=== PATIENT | male | born 1950 | race Caucasian/White ===

== ENCOUNTER 2021-04-11 07:42 | Day surgery (SDC) | payer MEDICARE, MEDICAID ==
[2021-04-11] VITALS (10 sets, daily range): BP systolic 113–149; BP diastolic 60–88
[~2021-04-11] VITALS: Ht 182.9 cm; Wt 97.3 kg
[~2021-04-11 07:42] MED LIST: DEXL60CA3 PO; LIDOcaine 1% (10mg/ml)w/preservative injection 20ml MDV ONE; METH-603 PO; NORCO10T PO; fentaNYL/PF 50MCG/1 ML 2ML syringe ONE; heparin 1,000unit/ml 10ml vial 10 ML ONE; iohexol 350 MG/ML 50ML vial IV ONE; iohexol 350MG/ML 100ml bottle IV ONE; midazolam 1 mg/ML 2ml injection ONE
[2021-04-11] MEDS ORDERED: diphenhydrAMINE 25mg capsule PO PRN (08:05)
[2021-04-11] MEDS ORDERED: normal saline 1,000 ML IV SCH (08:05)
[2021-04-11] MEDS ORDERED: NITR0.4T51 SL (08:09)
[2021-04-11] MEDS ORDERED: LOSA25TA96 PO (08:09)
[2021-04-11] MEDS ORDERED: ROSU20TA2 PO (08:09)
[2021-04-11] MEDS ORDERED: ASPI-1265 PO (08:09)
[2021-04-11] MEDS ORDERED: FLO0.4C PO (08:09)
[2021-04-11] MEDS ORDERED: midazolam 1 mg/ML 2ml injection ONE ×2 (08:28→08:31)
[2021-04-11] MEDS ORDERED: proCHLORperazine 10 MG/2 ml inj ONE (08:30)
[2021-04-11 08:31] LABS: BASOPHILS % (AUTO) 0.8 % (0-1); EOSINOPHILS # (AUTO) 0.1 X10'3 (0-0.9); LYMPHOCYTES # (AUTO) 1.5 X10'3 (1.1-4.8); MEAN PLATELET VOLUME 8.7 FL (7.4-10.4); NEUTROPHILS # (AUTO) 3.3 X10'3 (1.8-7.7)
[2021-04-11 08:33] LABS: EOSINOPHILS % (AUTO) 2.5 % (0-6); HEMATOCRIT 47.4 % (42.0-52.0); HEMOGLOBIN 16.3 g/dl (14.0-17.9); LYMPHOCYTES % (AUTO) 25.8 % (21-51); MEAN CORPUSCULAR HEMOGLOBIN 29.7 PG (27.0-31.0); MEAN CORPUSCULAR HGB CONC 34.4 g/dL (33.0-36.5); MEAN CORPUSCULAR VOLUME 86.2 FL (78-98); MONOCYTES # (AUTO) 0.7 X10'3 (0-0.9); MONOCYTES % (AUTO) 11.8 % (2-12); NEUTROPHILS % (AUTO) 59.1 % (42-75); PLATELET COUNT 188 X10'3 (140-440); RED CELL DISTRIBUTION WIDTH 14.1 % (11.5-14.5); WHITE BLOOD COUNT 5.7 X10'3 (4.5-11.0)
[2021-04-11 08:35] LABS: ALBUMIN 4.1 G/DL (3.4-5.0); BLOOD UREA NITROGEN 15 MG/DL (7-18); BUN/CREATININE RATIO 14.9 (5.4-32.0); CALCIUM 8.4 MG/DL (8.5-10.1); CHLORIDE 106 MMOL/L (99-107); CREATININE 1.01 MG/DL (0.60-1.10); GLUCOSE 96 MG/DL (70-104); TOTAL CARBON DIOXIDE 28.4 MMOL/L (24-32); eGFR 73 ML/MIN
[2021-04-11 08:43] LABS: ANION GAP 8 (8-16); SODIUM 142 MMOL/L (135-145)
[2021-04-11] MEDS ORDERED: iohexol 350MG/ML 100ml bottle IV ONE (08:53)
[2021-04-11] MEDS ORDERED: clopidogrel 300mg tablet ONE (09:21)
[2021-04-11] MEDS ORDERED: acetaminophen 325mg tablet PO PRN (10:05)
[2021-04-11] MEDS ORDERED: HYDROcodone/acetaminophen 5mg/325mg tablet PO PRN (10:05)
[2021-04-11] MEDS ORDERED: ondansetron/PF 4mg/2ml inj IV PRN (10:05)
[2021-04-11] MEDS ORDERED: proCHLORperazine 10 MG/2 ml inj IV PRN (10:05)
[2021-04-11] MEDS ORDERED: HYDROcodone/acetaminophen 10/325mg tab PO PRN (10:05)
== END 2021-04-11 16:15 | disposition home or self-care (01) ==
LOC: SSTAY O 07:42
PROVIDERS: ATTEND Internal Medicine Cardiovascular Disease
DX: R94.39 Abnormal result of other cardiovascular function study (principal); R07.89 Other chest pain; I25.10 Atherosclerotic heart disease of native coronary artery without angina pectoris; I10 Essential (primary) hypertension; E78.5 Hyperlipidemia, unspecified; Z87.891 Personal history of nicotine dependence; Z79.82 Long term (current) use of aspirin; Z79.899 Other long term (current) drug therapy
CPT/HCPCS: 36415; 80048; 83735; 85025; 85610; 93005; 93458; 93571; 99152; 99153; C1725; C1751; C1760; C1769; C1874; C1894; C9600; C9601; J0780; J1644; J2001; J2250; J3010; Q9967; A4620; A6258

== ENCOUNTER 2021-10-27 07:57 | Day surgery (SDC) | payer MEDICARE, MEDICAID ==
[2021-10-27] VITALS (10 sets, daily range): BP systolic 124–146; BP diastolic 69–89
[~2021-10-27] VITALS: Ht 185.4 cm; Wt 96.9 kg
[~2021-10-27 07:57] MED LIST changes: +ASPI-1265 PO; -DEXL60CA3 PO; +FLO0.4C PO; -LIDOcaine 1% (10mg/ml)w/preservative injection 20ml MDV ONE; +LOSA25TA96 PO; -METH-603 PO; +NITR0.4T51 SL; -NORCO10T PO; +ROSU20TA2 PO; -fentaNYL/PF 50MCG/1 ML 2ML syringe ONE; -heparin 1,000unit/ml 10ml vial 10 ML ONE; -iohexol 350 MG/ML 50ML vial IV ONE; -iohexol 350MG/ML 100ml bottle IV ONE; -midazolam 1 mg/ML 2ml injection ONE
[2021-10-27] MEDS ORDERED: diphenhydrAMINE 25mg capsule PO PRN (08:15)
[2021-10-27] MEDS ORDERED: normal saline 1,000 ML IV SCH (08:15)
[2021-10-27] MEDS ORDERED: ALFU10TA10 PO (08:18)
[2021-10-27] MEDS ORDERED: CLOP75TA34 PO (08:19)
[2021-10-27] MEDS ORDERED: LIDOcaine 1% (10mg/ml)w/preservative injection 20ml MDV ONE (08:49)
[2021-10-27] MEDS ORDERED: midazolam 1 mg/ML 2ml injection ONE ×2 (08:49→09:44)
[2021-10-27] MEDS ORDERED: iohexol 350MG/ML 100ml bottle IV ONE (08:49)
[2021-10-27] MEDS ORDERED: iohexol 350 MG/ML 50ML vial IV ONE (08:49)
[2021-10-27] MEDS ORDERED: fentaNYL/PF 50MCG/1 ML 2ML syringe ONE (08:49)
[2021-10-27 08:57] LABS: BASOPHILS # (AUTO) 0.1 X10'3 (0-0.2); BASOPHILS % (AUTO) 0.9 % (0-1); EOSINOPHILS # (AUTO) 0.2 X10'3 (0-0.9); EOSINOPHILS % (AUTO) 2.5 % (0-6); HEMATOCRIT 43.3 % (42.0-52.0); HEMOGLOBIN 14.7 g/dl (14.0-17.9); LYMPHOCYTES # (AUTO) 1.7 X10'3 (1.1-4.8); LYMPHOCYTES % (AUTO) 26.1 % (21-51); MEAN CORPUSCULAR HEMOGLOBIN 28.5 PG (27.0-31.0); MEAN PLATELET VOLUME 8.2 FL (7.4-10.4); MONOCYTES # (AUTO) 0.7 X10'3 (0-0.9); MONOCYTES % (AUTO) 11.1 % (2-12); NEUTROPHILS # (AUTO) 3.8 X10'3 (1.8-7.7); NEUTROPHILS % (AUTO) 59.4 % (42-75); PLATELET COUNT 194 X10'3 (140-440); RED BLOOD COUNT 5.16 X10'6 (4.70-6.10); RED CELL DISTRIBUTION WIDTH 13.8 % (11.5-14.5); WHITE BLOOD COUNT 6.4 X10'3 (4.5-11.0)
[2021-10-27 09:05] LABS: ALBUMIN 3.6 G/DL (3.4-5.0); ANION GAP 9 (8-16); BLOOD UREA NITROGEN 19 MG/DL (7-18); BUN/CREATININE RATIO 20.7 (5.4-32.0); CALCIUM 8.5 MG/DL (8.5-10.1); CHLORIDE 107 MMOL/L (99-107); CREATININE 0.92 MG/DL (0.60-1.10); GLUCOSE 93 MG/DL (70-104); POTASSIUM 3.9 MMOL/L (3.5-5.1); SODIUM 141 MMOL/L (135-145); TOTAL CARBON DIOXIDE 25.1 MMOL/L (24-32); eGFR 81 ML/MIN
[2021-10-27] MEDS ORDERED: heparin 1,000unit/ml 10ml vial 10 ML ONE (09:11)
[2021-10-27] MEDS ORDERED: verapamil 2.5 mg/ml inj IV ONE (09:17)
[2021-10-27] MEDS ORDERED: nitroGLYCERIN-Tridil 50MG/D5W 250 ML IV ONE (09:17)
[2021-10-27] MEDS ORDERED: ondansetron/PF 4mg/2ml inj IV PRN (10:30)
[2021-10-27] MEDS ORDERED: HYDROcodone/acetaminophen 10/325mg tab PO PRN (10:35)
[2021-10-27] MEDS ORDERED: acetaminophen 325mg tablet PO PRN (10:35)
[2021-10-27] MEDS ORDERED: proCHLORperazine 10 MG/2 ml inj IV PRN (10:35)
[2021-10-27] MEDS ORDERED: HYDROcodone/acetaminophen 5mg/325mg tablet PO PRN (10:35)
== END 2021-10-27 14:10 | disposition home or self-care (01) ==
LOC: SSTAY O 07:57
PROVIDERS: ATTEND Internal Medicine Cardiovascular Disease
DX: R07.89 Other chest pain (principal); I25.10 Atherosclerotic heart disease of native coronary artery without angina pectoris; I08.1 Rheumatic disorders of both mitral and tricuspid valves; I10 Essential (primary) hypertension; E78.5 Hyperlipidemia, unspecified; Z87.891 Personal history of nicotine dependence; Z79.899 Other long term (current) drug therapy
CPT/HCPCS: 36415; 80048; 83735; 85025; 85610; 93005; 93458; 99152; 99153; C1769; C1894; J1644; J2250; J3010; J3490; J7030; Q0163; Q9967; A4620; A6258

== ENCOUNTER 2021-11-14 05:25 | Inpatient (IN) | payer MEDICARE, MEDICAID ==
[2021-11-13 13:54] LABS: BASOPHILS % (AUTO) 0.6 % (0-1); EOSINOPHILS # (AUTO) 0.1 X10'3 (0-0.9); EOSINOPHILS % (AUTO) 1.9 % (0-6); LYMPHOCYTES # (AUTO) 1.4 X10'3 (1.1-4.8); LYMPHOCYTES % (AUTO) 21.5 % (21-51); MEAN CORPUSCULAR HEMOGLOBIN 28.7 PG (27.0-31.0); MEAN CORPUSCULAR VOLUME 84.3 FL (78-98); MEAN PLATELET VOLUME 8.6 FL (7.4-10.4); MONOCYTES # (AUTO) 0.8 X10'3 (0-0.9); MONOCYTES % (AUTO) 13.4 % (2-12); NEUTROPHILS # (AUTO) 3.9 X10'3 (1.8-7.7); NEUTROPHILS % (AUTO) 62.6 % (42-75); PRE OP HEMATOCRIT 44.7 % (42.0-52.0); PRE OP HEMOGLOBIN 15.2 g/dL (14.0-17.9); PRE OP PLATELET COUNT 200 X10'3 (140-440); RED CELL DISTRIBUTION WIDTH 14.3 % (11.5-14.5)
[2021-11-13 14:08] LABS: PRE OP INR 1.1 INR
[2021-11-13 14:41] LABS: ALBUMIN 3.9 G/DL (3.4-5.0); ALBUMIN/GLOBULIN RATIO 1.3 (1.1-1.5); ALKALINE PHOSPHATASE 64 IU/L (46-116); BLOOD UREA NITROGEN 15 MG/DL (7-18); BUN/CREATININE RATIO 14.7 (5.4-32.0); CALCIUM 8.8 MG/DL (8.5-10.1); CHLORIDE 104 MMOL/L (99-107); CREATININE 1.02 MG/DL (0.60-1.10); PRE OP ALT 45 U/L (30-65); PRE OP ANION GAP 9 (8-16); PRE OP AST 23 U/L (10-37); PRE OP BILIRUB, TOTAL 0.4 MG/DL (0.0-1.0); PRE OP GLUCOSE 96 MG/DL (70-104); PRE OP POTASSIUM 4.2 MMOL/L (3.4-5.1); PRE OP SODIUM 143 MMOL/L (135-145); TOTAL CARBON DIOXIDE 29.8 MMOL/L (24-32); eGFR 72 ML/MIN
[2021-11-13 14:47] LABS: HEMOGLOBIN A1C 5.8 % (4.5-6.2)
[2021-11-14] VITALS (20 sets, daily range): BP systolic 93–151; BP diastolic 56–95
[~2021-11-14] VITALS: Ht 185.4 cm; Wt 98.1 kg
[~2021-11-14 05:25] MED LIST changes: -ASPI-1265 PO; -NITR0.4T51 SL; +ringers solution, lacted 1,000 ML IV SCH
[2021-11-14] MEDS ORDERED: vancomycin 1,500 MG in NS 300ml IV soln IV ONE (05:30)
[2021-11-14] MEDS ORDERED: cefazolin/dext.iso 2gm/50ml IV ONE (05:30)
[2021-11-14] MEDS ORDERED: famotidine 20mg tablet PO ONE (05:30)
[2021-11-14] MEDS ORDERED: epiNEPHrine 1 mg/ml inj ONE (05:45)
[2021-11-14] MEDS ORDERED: ceFAZolin 1000mg inj ONE (05:46)
[2021-11-14] MEDS ORDERED: dextrose 50%-water 50ml dispensing syringe IV PRN ×2 (05:50→10:30)
[2021-11-14] MEDS ORDERED: Insulin Reg/NS 100units/100mL 100 ML IV SCH ×2 (05:50→10:30)
[2021-11-14] MEDS ORDERED: mupirocin 2% nasal ointment 1gm UD NS ONE (06:00)
[2021-11-14] MEDS ORDERED: LORazepam 2 mg/ml vial IV ONE (06:00)
[2021-11-14 06:50] LABS: CLARITY,URINE CLEAR (Clear); GLUCOSE, URINE NEGATIVE (Neg); KETONES,URINE NEGATIVE (Neg); LEUKOCYTE ESTERASE ,URINE NEGATIVE (Neg); NITRITES, URINE NEGATIVE (Neg); OCCULT BLOOD,URINE NEGATIVE (Neg); PROTEIN,URINE NEGATIVE (Neg); UROBILINOGEN,URINE 0.2 E.U/dL (0.2-1.0)
[2021-11-14 06:52] LABS: COLOR,URINE STRAW (Yellow); UA COLLECTION TYPE VOIDED
[2021-11-14] MEDS ORDERED: SUFENTANIL CITRATE 50 MCG/ML 2ml ampule IV ONE (07:03)
[2021-11-14] MEDS ORDERED: midazolam 1 mg/ML 2ml injection ONE (07:03)
[2021-11-14 07:37] LABS: ABG BASE EXCESS -2.3 mmol/L (-2.0-2.0); ABG HCO3 22.7 mmol/L (22.0-26.0); ABG OXYGEN SATURATION 99.8 % (94-97); ABG PCO2 40.2 mmHg (35.0-48.0); ABG PO2 356.8 mmHg (75.0-100.0); CL (ABG) 107 mmol/L (98-110); FCOHb 0.4 % (0.0-3.9); FMetHb 0.3 % (0.0-1.5); FO2Hb 99.1 % (94-97); GLUCOSE (ABG) 90 mg/dl (70-105); IONIZED CA (ABG) 1.14 mmol/L (1.10-1.43); K (ABG) 3.8 mmol/L (3.5-5.0); TOTAL HEMOGLOBIN 14.1 G/dl (14.0-18.0)
[2021-11-14 08:44] LABS: ABG BASE EXCESS 0.1 mmol/L (-2.0-2.0); ABG HCO3 27.8 mmol/L (22.0-26.0); ABG OXYGEN SATURATION 99.5 % (94-97); ABG PCO2 60.7 mmHg (35.0-48.0); ABG PO2 370.2 mmHg (75.0-100.0); CL (ABG) 106 mmol/L (98-110); FCOHb 0.3 % (0.0-3.9); FMetHb 0.3 % (0.0-1.5); FO2Hb 98.9 % (94-97); GLUCOSE (ABG) 91 mg/dl (70-105); IONIZED CA (ABG) 1.05 mmol/L (1.10-1.43); K (ABG) 6.5 mmol/L (3.5-5.0); TOTAL HEMOGLOBIN 11.1 G/dl (14.0-18.0)
[2021-11-14 09:00] LABS: ABG BASE EXCESS VENOUS -1.3 mmol/L (-2.0 - 2.0); ABG HCO3 VENOUS 25.1 mmol/L (21.0-28.0); ABG PCO2 VENOUS 49.1 mmHg (41.0-54.0); ABG PO2 VENOUS 56.5 mmHg (25.0-35.0); CL (ABG) 106 mmol/L (98-110); FCOHb VENOUS 0.4 %; FHHb VENOUS 11.1 %; FMetHb VENOUS 0.3 % (0.0 - 0.5); FO2Hb VENOUS 88.2 %; GLUCOSE (ABG) 116 mg/dl (70-105); IONIZED CA (ABG) 1.06 mmol/L (1.10-1.43); K (ABG) 5.6 mmol/L (3.5-5.0); TOTAL HEMOGLOBIN 12.3 G/dl (14.0-18.0)
[2021-11-14] MEDS ORDERED: ipratropium/albuterol 3ml nebule IH PRN (09:00)
[2021-11-14 09:25] LABS: ABG BASE EXCESS -1.9 mmol/L (-2.0-2.0); ABG HCO3 22.7 mmol/L (22.0-26.0); ABG OXYGEN SATURATION 99.7 % (94-97); ABG PCO2 38.2 mmHg (35.0-48.0); CL (ABG) 106 mmol/L (98-110); FCOHb 0.1 % (0.0-3.9); FMetHb 0.3 % (0.0-1.5); FO2Hb 99.3 % (94-97); GLUCOSE (ABG) 146 mg/dl (70-105); K (ABG) 5.4 mmol/L (3.5-5.0); TOTAL HEMOGLOBIN 11.7 G/dl (14.0-18.0)
[2021-11-14 09:54] LABS: ABG BASE EXCESS -1.6 mmol/L (-2.0-2.0); ABG HCO3 22.5 mmol/L (22.0-26.0); ABG OXYGEN SATURATION 99.5 % (94-97); ABG PCO2 35.8 mmHg (35.0-48.0); ABG PO2 371.8 mmHg (75.0-100.0); CL (ABG) 104 mmol/L (98-110); FCOHb 0.3 % (0.0-3.9); FMetHb 0.3 % (0.0-1.5); FO2Hb 98.9 % (94-97); GLUCOSE (ABG) 136 mg/dl (70-105); IONIZED CA (ABG) 1.38 mmol/L (1.10-1.43); K (ABG) 5.4 mmol/L (3.5-5.0); TOTAL HEMOGLOBIN 10.4 G/dl (14.0-18.0)
[2021-11-14] MEDS ORDERED: magnesium hydroxide 30ml (MOM) UD suspension PO PRN (10:30)
[2021-11-14] MEDS ORDERED: bisacodyl 10mg suppository rectal RC PRN (10:30)
[2021-11-14] MEDS ORDERED: potassium CL 10mEq/100ml bag 100 ML IV PRN (10:30)
[2021-11-14] MEDS ORDERED: mineral oil 133ml enema RC PRN (10:30)
[2021-11-14] MEDS ORDERED: magnesium 4gm in 100ml NS 100 ML IV PRN (10:30)
[2021-11-14] MEDS ORDERED: insulin glargine (Lantus) pen - multi-dose SQ PRN (10:30)
[2021-11-14] MEDS ORDERED: potassium Cl 20 mEq SR tablet PO PRN (10:30)
[2021-11-14] MEDS ORDERED: magnesium 2GM in 50ml NS 50 ML IV PRN (10:30)
[2021-11-14] MEDS ORDERED: niCARDipine-NS 40mg/200ml IVPB 200 ML IV PRN (10:30)
[2021-11-14] MEDS: sodium chloride 0.45% 1,000 ML IV SCH (10:30)
[2021-11-14] MEDS ORDERED: sodium phosphate inj. 15 MMOL in dextrose 5%-water 250 ML IV PRN (10:30)
[2021-11-14] MEDS ORDERED: morphine 4 MG/ML inj SYRINge IV PRN (10:30)
[2021-11-14] MEDS ORDERED: Neutra Phos packet PO PRN (10:30)
[2021-11-14] MEDS ORDERED: ondansetron/PF 4mg/2ml inj IV PRN (10:30)
[2021-11-14] MEDS ORDERED: NORepinephrine 8mg/ 250ml NS 250 ML IV PRN (10:30)
[2021-11-14] MEDS ORDERED: acetaminophen 325mg tablet PO PRN ×2 (10:30)
[2021-11-14] MEDS ORDERED: magnesium citrate 296ml oral solution PO PRN (10:30)
[2021-11-14] MEDS ORDERED: morphine 2 MG/ML inj. syringe IV PRN (10:30)
[2021-11-14] MEDS ORDERED: HYDROcodone/acetaminophen 10/325mg tab PO PRN (10:30)
[2021-11-14] MEDS ORDERED: metoclopramide 5 mg/ml inj IV PRN (10:30)
[2021-11-14] MEDS ORDERED: sodium phosphate inj. 30 MMOL in dextrose 5%-water 250 ML IV PRN (10:30)
[2021-11-14 10:33] LABS: ABG BASE EXCESS VENOUS -1.5 mmol/L (-2.0 - 2.0); ABG HCO3 VENOUS 24.7 mmol/L (21.0-28.0); ABG PCO2 VENOUS 47.9 mmHg (41.0-54.0); ABG PO2 VENOUS 36.6 mmHg (25.0-35.0); CL (ABG) 107 mmol/L (98-110); FCOHb VENOUS 0.6 %; FHHb VENOUS 28.8 %; FO2Hb VENOUS 70.6 %; GLUCOSE (ABG) 139 mg/dl (70-105); IONIZED CA (ABG) 1.15 mmol/L (1.10-1.43); K (ABG) 4.7 mmol/L (3.5-5.0); TOTAL HEMOGLOBIN 12.1 G/dl (14.0-18.0)
[2021-11-14 10:36] LABS: ACTIVATED CLOTTING TIME 122 SEC (101-148)
[2021-11-14] MEDS ORDERED: acetaminophen 1,000mg/100ml IV 100 ML IV ONE (11:08)
[2021-11-14] MEDS ORDERED: rocuronium 10mg/ml inj IV ONE (11:08)
[2021-11-14] MEDS ORDERED: propofol inj 20 ML IV ONE (11:08)
[2021-11-14] MEDS ORDERED: phenylephrine 10mg/ml inj. ONE (11:08)
[2021-11-14] MEDS ORDERED: LIDOcaine 2% (20mg/ml) 5ml vial ONE (11:08)
[2021-11-14 11:14] LABS: ABG BASE EXCESS -3.1 mmol/L (-2.0-2.0); ABG HCO3 22.6 mmol/L (22.0-26.0); ABG OXYGEN SATURATION 98.9 % (94-97); ABG PCO2 (T) 41.7 mmHg (35.0-48.0); ABG PO2 (T) 161.9 mmHg (75.0-100.0); FCOHb 0.2 % (0.0-3.9); FMetHb 0.4 % (0.0-1.5); FO2Hb 98.3 % (94-97); PATIENT TEMPERATURE 36.2; PEEP 5 cm H2O; RESPIRATORY RATE 12 b/min; TIDAL VOLUME 650 mL; TOTAL HEMOGLOBIN 13.8 G/dl (14.0-18.0)
[2021-11-14] MEDS ORDERED: dexmedetomidine/D5W 100mL 100 ML IV ONE (11:38)
[2021-11-14 11:40] LABS: BASOPHILS % (AUTO) 0.3 % (0-1); EOSINOPHILS # (AUTO) 0.2 X10'3 (0-0.9); EOSINOPHILS % (AUTO) 1.2 % (0-6); HEMATOCRIT 36.8 % (42.0-52.0); HEMOGLOBIN 12.6 g/dl (14.0-17.9); LYMPHOCYTES # (AUTO) 0.8 X10'3 (1.1-4.8); LYMPHOCYTES % (AUTO) 6.5 % (21-51); MEAN CORPUSCULAR HEMOGLOBIN 28.6 PG (27.0-31.0); MEAN CORPUSCULAR HGB CONC 34.3 g/dL (33.0-36.5); MEAN CORPUSCULAR VOLUME 83.3 FL (78-98); MEAN PLATELET VOLUME 8.7 FL (7.4-10.4); MONOCYTES # (AUTO) 0.9 X10'3 (0-0.9); MONOCYTES % (AUTO) 6.9 % (2-12); NEUTROPHILS # (AUTO) 10.8 X10'3 (1.8-7.7); NEUTROPHILS % (AUTO) 85.1 % (42-75); PLATELET COUNT 100 X10'3 (140-440); RED BLOOD COUNT 4.42 X10'6 (4.70-6.10); RED CELL DISTRIBUTION WIDTH 13.8 % (11.5-14.5); WHITE BLOOD COUNT 12.6 X10'3 (4.5-11.0)
[2021-11-14] MEDS: dexmedetomidine/D5W 100mL 100 ML IV SCH ×2 (11:40→22:42)
[2021-11-14 11:55] LABS: APTT 30 SECONDS (22-32)
[2021-11-14 11:57] LABS: ALANINE AMINOTRANSFERASE 27 U/L (12-78); ALBUMIN 2.6 G/DL (3.4-5.0); ALBUMIN/GLOBULIN RATIO 1.5 (1.1-1.5); ALKALINE PHOSPHATASE 36 IU/L (46-116); ANION GAP 11 (8-16); BILIRUBIN,TOTAL 0.7 MG/DL (0.1-1.0); BLOOD UREA NITROGEN 13 MG/DL (7-18); BUN/CREATININE RATIO 16.3 (5.4-32.0); CALCIUM 7.4 MG/DL (8.5-10.1); CHLORIDE 110 MMOL/L (99-107); GLUCOSE 131 MG/DL (70-104); MAGNESIUM 3.5 MG/DL (1.5-2.4); SODIUM 143 MMOL/L (135-145); TOTAL CARBON DIOXIDE 22.5 MMOL/L (24-32); TOTAL PROTEIN 4.3 G/DL (6.4-8.2); eGFR > 90 ML/MIN
[2021-11-14 12:02] LABS: ASPARTATE AMINO TRANSFERASE 49 U/L (10-37); PHOSPHORUS 1.3 MG/DL (2.3-4.5); POTASSIUM 4.4 MMOL/L (3.5-5.1)
[2021-11-14 12:37] LABS: ELLIPTOCYTES 1+; PLATELET ESTIMATE DECREASED
[2021-11-14 12:38] LABS: BURR CELLS FEW
--- NOTE | 2021-11-14 12:43 | NUR ---
Pt s/p mitral valve repair today per EMR; would benfit from high protein education once appropriate post-op. Addendum: 11/14/21 at [address] Amended: Links added.
[2021-11-14] MEDS: gabapentin 300mg capsule PO SCH ×2 (12:47→21:00)
[2021-11-14] MEDS: potassium Cl 20mEq/100mL bag 100 ML IV PRN ×2 (12:48→13:52)
--- NOTE | 2021-11-14 14:01 | NUR ---
Nutrition Consult: Pt s/p mitral valve repair today per EMR; would benefit from high protein education once appropriate post-op. Addendum: 11/14/21 at [address] Amended: Links added.
[2021-11-14] MEDS: albumin (Human) 5% 250ml 250 ML IV PRN ×2 (14:09→16:25)
[2021-11-14] MEDS: ceFAZolin/D5W- 1GM premix 50 ML IV SCH (16:24)
[2021-11-14 17:50] LABS: BASOPHILS % (AUTO) 0.1 % (0-1); EOSINOPHILS % (AUTO) 0 % (0-6); HEMATOCRIT 37.9 % (42.0-52.0); LYMPHOCYTES # (AUTO) 0.4 X10'3 (1.1-4.8); LYMPHOCYTES % (AUTO) 4.2 % (21-51); MEAN CORPUSCULAR HEMOGLOBIN 28.6 PG (27.0-31.0); MEAN CORPUSCULAR HGB CONC 34.4 g/dL (33.0-36.5); MEAN CORPUSCULAR VOLUME 83.1 FL (78-98); MEAN PLATELET VOLUME 8.7 FL (7.4-10.4); MONOCYTES # (AUTO) 0.6 X10'3 (0-0.9); MONOCYTES % (AUTO) 5.8 % (2-12); NEUTROPHILS # (AUTO) 8.7 X10'3 (1.8-7.7); NEUTROPHILS % (AUTO) 89.9 % (42-75); PLATELET COUNT 73 X10'3 (140-440); RED BLOOD COUNT 4.56 X10'6 (4.70-6.10); RED CELL DISTRIBUTION WIDTH 14.1 % (11.5-14.5); WHITE BLOOD COUNT 9.6 X10'3 (4.5-11.0)
[2021-11-14 18:05] LABS: ALBUMIN 3.4 G/DL (3.4-5.0); ANION GAP 7 (8-16); BLOOD UREA NITROGEN 16 MG/DL (7-18); BUN/CREATININE RATIO 15.7 (5.4-32.0); CALCIUM 7.3 MG/DL (8.5-10.1); CHLORIDE 113 MMOL/L (99-107); CREATININE 1.02 MG/DL (0.60-1.10); GLUCOSE 158 MG/DL (70-104); MAGNESIUM 2.7 MG/DL (1.5-2.4); PHOSPHORUS 3.3 MG/DL (2.3-4.5); POTASSIUM 4.7 MMOL/L (3.5-5.1); SODIUM 143 MMOL/L (135-145); TOTAL CARBON DIOXIDE 22.7 MMOL/L (24-32); eGFR 72 ML/MIN
--- NOTE | 2021-11-14 19:00 | NUR ---
Patient in room ICU 2042. I have received report from william JI and had the opportunity to ask questions and assume patient care.
[2021-11-14] MEDS: sennosides/docusate sodium tablet PO SCH (20:00)
[2021-11-14] MEDS ORDERED: pantoprazole 40MG/D5 100ML BAG 100 ML IV SCH (20:00)
[2021-11-14] MEDS: mupirocin 2% ointment 22GM NS SCH (20:00)
[2021-11-14] MEDS ORDERED: albumin (Human) 5% 250ml 250 ML IV ONE (20:40)
[2021-11-14] MEDS ORDERED: calcium chloride 100 MG/1 ML inj IV ONE (20:40)
[2021-11-14] MEDS: atorvastatin 10mg tablet PO SCH (21:00)
[2021-11-14] MEDS ORDERED: pantoprazole 40MG/NS 100ML BAG 100 ML IV SCH (21:25)
[2021-11-14 21:47] LABS: ABG BASE EXCESS -4.6 mmol/L (-2.0-2.0); ABG HCO3 19.2 mmol/L (22.0-26.0); ABG OXYGEN SATURATION 96.9 % (94-97); ABG PCO2 (T) 31.9 mmHg (35.0-48.0); ABG PO2 (T) 94.6 mmHg (75.0-100.0); FCOHb 0.3 % (0.0-3.9); FMetHb 0.3 % (0.0-1.5); FO2Hb 96.3 % (94-97); PATIENT TEMPERATURE 37.2; PEEP 5 cm H2O; RESPIRATORY RATE 12 b/min; TIDAL VOLUME 650 mL; TOTAL HEMOGLOBIN 12.7 G/dl (14.0-18.0)
[2021-11-14] MEDS ORDERED: DOBUTamine-DoBUTrex 500mg/D5W 250 ML IV SCH (22:05)
[2021-11-14] MEDS: vancomycin/NS 1 GM ADD-VANTAGE 250 ML IV SCH (22:50)
[2021-11-15] VITALS (21 sets, daily range): BP systolic 90–120; BP diastolic 49–69
[2021-11-15] MEDS: ceFAZolin/D5W- 1GM premix 50 ML IV SCH ×3 (00:34→15:33)
[2021-11-15 02:46] LABS: APTT 27 SECONDS (22-32)
[2021-11-15 02:47] LABS: BASOPHILS % (AUTO) 0.1 % (0-1); EOSINOPHILS % (AUTO) 0 % (0-6); HEMATOCRIT 34.9 % (42.0-52.0); HEMOGLOBIN 11.8 g/dl (14.0-17.9); LYMPHOCYTES # (AUTO) 0.5 X10'3 (1.1-4.8); LYMPHOCYTES % (AUTO) 4.1 % (21-51); MEAN CORPUSCULAR HEMOGLOBIN 28.4 PG (27.0-31.0); MEAN CORPUSCULAR HGB CONC 33.8 g/dL (33.0-36.5); MEAN PLATELET VOLUME 9.6 FL (7.4-10.4); MONOCYTES # (AUTO) 0.8 X10'3 (0-0.9); MONOCYTES % (AUTO) 6.4 % (2-12); NEUTROPHILS # (AUTO) 10.8 X10'3 (1.8-7.7); NEUTROPHILS % (AUTO) 89.4 % (42-75); PLATELET COUNT 67 X10'3 (140-440); RED BLOOD COUNT 4.16 X10'6 (4.70-6.10); RED CELL DISTRIBUTION WIDTH 14.2 % (11.5-14.5); WHITE BLOOD COUNT 12.1 X10'3 (4.5-11.0)
[2021-11-15 03:11] LABS: ALANINE AMINOTRANSFERASE 25 U/L (12-78); ALBUMIN 3.3 G/DL (3.4-5.0); ALBUMIN/GLOBULIN RATIO 1.7 (1.1-1.5); ALKALINE PHOSPHATASE 30 IU/L (46-116); ANION GAP 12 (8-16); ASPARTATE AMINO TRANSFERASE 50 U/L (10-37); BILIRUBIN,TOTAL 0.6 MG/DL (0.1-1.0); BLOOD UREA NITROGEN 19 MG/DL (7-18); BUN/CREATININE RATIO 19.4 (5.4-32.0); CHLORIDE 111 MMOL/L (99-107); CREATININE 0.98 MG/DL (0.60-1.10); GLUCOSE 148 MG/DL (70-104); MAGNESIUM 2.2 MG/DL (1.5-2.4); PHOSPHORUS 3.7 MG/DL (2.3-4.5); POTASSIUM 3.9 MMOL/L (3.5-5.1); SODIUM 144 MMOL/L (135-145); TOTAL CARBON DIOXIDE 21.5 MMOL/L (24-32); TOTAL PROTEIN 5.3 G/DL (6.4-8.2); eGFR 76 ML/MIN
[2021-11-15 03:52] LABS: ABG HCO3 21.1 mmol/L (22.0-26.0); ABG OXYGEN SATURATION 96.5 % (94-97); ABG PCO2 (T) 36.1 mmHg (35.0-48.0); ABG PO2 (T) 89.3 mmHg (75.0-100.0); ALLEN'S TEST POSITIVE; FCOHb 0.3 % (0.0-3.9); FMetHb 0.4 % (0.0-1.5); FO2Hb 95.8 % (94-97); PATIENT TEMPERATURE 37.8; PEEP 5 cm H2O; TOTAL HEMOGLOBIN 12.4 G/dl (14.0-18.0)
[2021-11-15] MEDS: potassium Cl 20mEq/100mL bag 100 ML IV PRN ×2 (05:05→06:34)
[2021-11-15] MEDS: sodium chloride 0.45% 1,000 ML IV SCH (06:38)
[2021-11-15] MEDS ORDERED: insulin Lispro (HumaLOG) vial - multi-dose SQ SCH (07:05)
[2021-11-15] MEDS ORDERED: dextrose ORAL solution 15 GM/59 ML bottle PO PRN ×2 (07:05)
[2021-11-15] MEDS ORDERED: dextrose 50%-water 50ml dispensing syringe IV PRN ×2 (07:05)
[2021-11-15] MEDS ORDERED: glucagon, human recombinant 1mg kit SUBCUT PRN (07:05)
[2021-11-15] MEDS ORDERED: metoprolol tartrate 12.5mg (1/2 tablet) PO SCH (08:00)
[2021-11-15] MEDS: aspirin 325mg tablet, delayed-release (Ecotrin) PO SCH (08:35)
[2021-11-15] MEDS: tamsulosin 0.4mg capsule PO SCH (08:35)
[2021-11-15] MEDS: vancomycin/NS 1 GM ADD-VANTAGE 250 ML IV SCH ×2 (08:35→20:38)
[2021-11-15] MEDS: sennosides/docusate sodium tablet PO SCH ×2 (08:35→20:35)
[2021-11-15] MEDS: gabapentin 300mg capsule PO SCH ×3 (08:35→20:35)
[2021-11-15] MEDS: dexmedetomidine/D5W 100mL 100 ML IV SCH (08:45)
[2021-11-15] MEDS: mupirocin 2% ointment 22GM NS SCH ×2 (08:45→20:00)
[2021-11-15] MEDS: HYDROcodone/acetaminophen 10/325mg tab PO PRN (12:16)
[2021-11-15] MEDS ORDERED: FLU VACC QS2021-22(6MOS UP)/PF 60 MCG/0.5 ML SYRINGE IM ONE (13:00)
[2021-11-15] MEDS ORDERED: pneumococcal 23-VAL P-sac vacc 25 mcg/0.5ml vial IMVAC ONE (13:00)
[2021-11-15] MEDS: atorvastatin 10mg tablet PO SCH (20:35)
[2021-11-16] VITALS (24 sets, daily range): BP systolic 102–130; BP diastolic 52–72
[2021-11-16] MEDS: ceFAZolin/D5W- 1GM premix 50 ML IV SCH (00:07)
[2021-11-16 03:13] LABS: BASOPHILS % (AUTO) 0.1 % (0-1); EOSINOPHILS % (AUTO) 0 % (0-6); HEMATOCRIT 33.9 % (42.0-52.0); HEMOGLOBIN 11.4 g/dl (14.0-17.9); LYMPHOCYTES # (AUTO) 0.8 X10'3 (1.1-4.8); LYMPHOCYTES % (AUTO) 4.4 % (21-51); MEAN CORPUSCULAR HEMOGLOBIN 28.5 PG (27.0-31.0); MEAN CORPUSCULAR HGB CONC 33.5 g/dL (33.0-36.5); MEAN CORPUSCULAR VOLUME 84.9 FL (78-98); MEAN PLATELET VOLUME 9.5 FL (7.4-10.4); MONOCYTES # (AUTO) 2.3 X10'3 (0-0.9); MONOCYTES % (AUTO) 12.7 % (2-12); NEUTROPHILS # (AUTO) 14.9 X10'3 (1.8-7.7); NEUTROPHILS % (AUTO) 82.8 % (42-75); PLATELET COUNT 83 X10'3 (140-440); RED BLOOD COUNT 3.99 X10'6 (4.70-6.10); RED CELL DISTRIBUTION WIDTH 14.6 % (11.5-14.5)
[2021-11-16 03:30] LABS: ALBUMIN 3.1 G/DL (3.4-5.0); ANION GAP 6 (8-16); BLOOD UREA NITROGEN 29 MG/DL (7-18); BUN/CREATININE RATIO 30.2 (5.4-32.0); CALCIUM 7.6 MG/DL (8.5-10.1); CHLORIDE 108 MMOL/L (99-107); CREATININE 0.96 MG/DL (0.60-1.10); GLUCOSE 129 MG/DL (70-104); MAGNESIUM 2.2 MG/DL (1.5-2.4); PHOSPHORUS 2.5 MG/DL (2.3-4.5); POTASSIUM 4.7 MMOL/L (3.5-5.1); SODIUM 140 MMOL/L (135-145); eGFR 77 ML/MIN
[2021-11-16] MEDS: aspirin 325mg tablet, delayed-release (Ecotrin) PO SCH (06:59)
[2021-11-16] MEDS: sennosides/docusate sodium tablet PO SCH ×2 (07:06→20:05)
[2021-11-16] MEDS: pantoprazole 40mg Tablet.DR PO SCH (07:07)
[2021-11-16] MEDS: tamsulosin 0.4mg capsule PO SCH (07:07)
[2021-11-16] MEDS: mupirocin 2% ointment 22GM NS SCH (07:07)
[2021-11-16] MEDS: gabapentin 300mg capsule PO SCH (07:09)
[2021-11-16] MEDS ORDERED: furosemide 40mg/4ml inj IV ONE (10:05)
[2021-11-16] MEDS: HYDROcodone/acetaminophen 10/325mg tab PO PRN (10:39)
[2021-11-16] MEDS: ascorbic acid 500mg tablet PO SCH ×2 (10:39→18:04)
--- NOTE | 2021-11-16 11:57 | NUR ---
Nutrition Consult: Pt s/p mitral valve repair this admit. Provided pt w/ written and verbal high protein diet ed w/ RD contact info. Addendum: 11/16/21 at [address] Amended: Links added.
--- NOTE | 2021-11-16 15:16 | NUR ---
0800- pt up in chair, transfers very easily. 0930- back to bed for CT out by Elton CARO. gauze and foam tape in place. 1000- seen by Dr Smith. orders to take out CVL, FC and can transfer to tele. 1200- OOB for lunch. Dressing to CT site saturated. replaced with abd pad and foam tape. 1400- Dressing soaked through, replaced dressing, call MD MITCHEL unconcerned at this time due to anticoags given in OR. FC dc'd, scant bleeding from penis.
--- NOTE | 2021-11-16 19:20 | NUR ---
Pt up in chair, assisted back to bed with X's 2 staff, minimal assistance. Pt tolerated well. Chest dressing dry and intact.
[2021-11-16] MEDS: guaiFENesin ER 600mg tablet PO SCH (20:05)
[2021-11-16] MEDS: metoprolol tartrate 12.5mg (1/2 tablet) PO SCH (20:05)
[2021-11-16] MEDS: atorvastatin 10mg tablet PO SCH (20:07)
[2021-11-17] VITALS (12 sets, daily range): BP systolic 93–122; BP diastolic 49–75
[2021-11-17 05:59] LABS: BASOPHILS % (AUTO) 0 % (0-1); EOSINOPHILS % (AUTO) 0 % (0-6); HEMATOCRIT 33.4 % (42.0-52.0); HEMOGLOBIN 11.4 g/dl (14.0-17.9); LYMPHOCYTES # (AUTO) 1.2 X10'3 (1.1-4.8); LYMPHOCYTES % (AUTO) 8.8 % (21-51); MEAN CORPUSCULAR HEMOGLOBIN 28.6 PG (27.0-31.0); MEAN PLATELET VOLUME 9.6 FL (7.4-10.4); MONOCYTES # (AUTO) 2.1 X10'3 (0-0.9); MONOCYTES % (AUTO) 15.6 % (2-12); NEUTROPHILS # (AUTO) 10.3 X10'3 (1.8-7.7); NEUTROPHILS % (AUTO) 75.6 % (42-75); PLATELET COUNT 90 X10'3 (140-440); RED BLOOD COUNT 3.98 X10'6 (4.70-6.10); RED CELL DISTRIBUTION WIDTH 14.2 % (11.5-14.5); WHITE BLOOD COUNT 13.7 X10'3 (4.5-11.0)
[2021-11-17 06:57] LABS: ALBUMIN 2.9 G/DL (3.4-5.0); ANION GAP 8 (8-16); BLOOD UREA NITROGEN 26 MG/DL (7-18); BUN/CREATININE RATIO 28.9 (5.4-32.0); CALCIUM 7.4 MG/DL (8.5-10.1); CHLORIDE 105 MMOL/L (99-107); GLUCOSE 109 MG/DL (70-104); MAGNESIUM 2.3 MG/DL (1.5-2.4); PHOSPHORUS 2.5 MG/DL (2.3-4.5); SODIUM 138 MMOL/L (135-145); TOTAL CARBON DIOXIDE 24.9 MMOL/L (24-32); eGFR 83 ML/MIN
[2021-11-17] MEDS: sennosides/docusate sodium tablet PO SCH ×2 (07:00→20:00)
[2021-11-17] MEDS: tamsulosin 0.4mg capsule PO SCH (07:00)
[2021-11-17] MEDS: metoprolol tartrate 12.5mg (1/2 tablet) PO SCH ×2 (07:00→19:42)
[2021-11-17] MEDS: pantoprazole 40mg Tablet.DR PO SCH (07:00)
[2021-11-17] MEDS: aspirin 325mg tablet, delayed-release (Ecotrin) PO SCH (07:00)
[2021-11-17] MEDS: ascorbic acid 500mg tablet PO SCH (07:01)
[2021-11-17] MEDS: guaiFENesin ER 600mg tablet PO SCH ×2 (07:03→19:37)
[2021-11-17] MEDS ORDERED: magnesium 2GM in 50ml NS 50 ML IV PRN (07:40)
[2021-11-17] MEDS ORDERED: potassium CL 10mEq/100ml bag 100 ML IV PRN (07:40)
[2021-11-17] MEDS ORDERED: potassium Cl 20mEq/100mL bag 100 ML IV PRN (07:40)
[2021-11-17] MEDS ORDERED: potassium Cl 40MEQ/1/2NS 520ml 520 ML IV PRN (07:40)
[2021-11-17] MEDS ORDERED: potassium Cl 40MEQ/250ML bag 250 ML IV PRN (07:40)
[2021-11-17] MEDS ORDERED: magnesium 4gm in 100ml NS 100 ML IV PRN (07:40)
[2021-11-17] MEDS ORDERED: potassium Cl 20 mEq SR tablet PO PRN (07:40)
[2021-11-17] MEDS: magnesium Cl slow-release 64mg tablet PO SCH ×2 (08:00→19:37)
--- NOTE | 2021-11-17 08:10 | NUR ---
Report called to receiving nurseKatelin. Transferred up to room 3010 with all belonging. Pt ambulated to room. oriented to room. Noted receiving nurse of arrival.
--- NOTE | 2021-11-17 08:23 | NUR ---
Nutrition consult: Addressed in previous RD assessment Addendum: 11/17/21 at [address] Amended: Links added.
[2021-11-17 08:33] LABS: ACT @ 1.70 U 346 SEC (193-297); ACT @ 2.84 U 476 SEC (260-420); BASELINE ACT 165 SEC (101-148); PATIENT WEIGHT 91.0k KG
[2021-11-17 08:35] LABS: ABG BASE EXCESS -0.7 mmol/L (-2.0-2.0); ABG HCO3 23.5 mmol/L (22.0-26.0); ABG OXYGEN SATURATION 96.6 % (94-97); ABG PCO2 (T) 37.5 mmHg (35.0-48.0); ABG PO2 (T) 78.4 mmHg (75.0-100.0); ALLEN'S TEST POSITIVE; FCOHb 0.7 % (0.0-3.9); FMetHb 0.3 % (0.0-1.5); FO2Hb 95.6 % (94-97); TOTAL HEMOGLOBIN 15.3 G/dl (14.0-18.0)
[2021-11-17] MEDS ORDERED: pneumococcal 23-VAL P-sac vacc 25 mcg/0.5ml vial IMVAC ONE (10:00)
[2021-11-17] MEDS ORDERED: FLU VACC QS2021-22(6MOS UP)/PF 60 MCG/0.5 ML SYRINGE IM ONE (10:00)
[2021-11-17] MEDS: potassium Cl 20 mEq SR tablet PO SCH ×2 (10:02→19:37)
--- NOTE | 2021-11-17 17:29 | NUR ---
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 GORDO HALL NOTIFIED. EKG WAS ORDERED AND ANALYZED BY HOSPITALIST. NO ABNORMALITIES WERE NOTED. PA ALSO TOLD CURRENT HR AND TEMP OF 97.7.
[2021-11-17] MEDS: HYDROcodone/acetaminophen 10/325mg tab PO PRN (17:55)
--- NOTE | 2021-11-17 18:59 | NUR ---
Problems reprioritized. Patient report given, questions answered & plan of care reviewed with MARGY COELHO.
--- NOTE | 2021-11-17 19:19 | NUR ---
Pt in bed AAOx4 denied any discomfort. A Fib /A flutter noted on monitor; Dr Goodwin notified.
[2021-11-17] MEDS: atorvastatin 10mg tablet PO SCH (19:43)
--- NOTE | 2021-11-17 20:00 | NUR ---
Attempted to administer the vaccines; pt requested to get the vaccines upon discharge.
--- NOTE | 2021-11-17 21:00 | NUR ---
Pt converted to Sinus rhythm on the monitor. HR 83
[2021-11-18 02:00] VITALS: BP 125/70
[2021-11-18 06:00] VITALS: BP 149/76
[2021-11-18 06:47] LABS: BASOPHILS % (AUTO) 0.1 % (0-1); EOSINOPHILS % (AUTO) 0.1 % (0-6); HEMATOCRIT 33.3 % (42.0-52.0); HEMOGLOBIN 11.3 g/dl (14.0-17.9); LYMPHOCYTES # (AUTO) 1.1 X10'3 (1.1-4.8); LYMPHOCYTES % (AUTO) 9.7 % (21-51); MEAN CORPUSCULAR HEMOGLOBIN 28.9 PG (27.0-31.0); MEAN PLATELET VOLUME 9.4 FL (7.4-10.4); MONOCYTES # (AUTO) 1.5 X10'3 (0-0.9); MONOCYTES % (AUTO) 13.7 % (2-12); NEUTROPHILS # (AUTO) 8.3 X10'3 (1.8-7.7); NEUTROPHILS % (AUTO) 76.4 % (42-75); PLATELET COUNT 115 X10'3 (140-440); RED BLOOD COUNT 3.92 X10'6 (4.70-6.10); RED CELL DISTRIBUTION WIDTH 14.2 % (11.5-14.5); WHITE BLOOD COUNT 10.8 X10'3 (4.5-11.0)
[2021-11-18] MEDS ORDERED: PANT40TA54 PO (07:36)
[2021-11-18] MEDS ORDERED: ASPI-1071 PO (07:36)
[2021-11-18] MEDS ORDERED: VITC500T PO (07:36)
[2021-11-18] MEDS ORDERED: HYDR-3972 PO (07:36)
[2021-11-18] MEDS ORDERED: LOP12.5T PO (07:36)
[2021-11-18 07:39] LABS: ALBUMIN 2.7 G/DL (3.4-5.0); ANION GAP 7 (8-16); BLOOD UREA NITROGEN 22 MG/DL (7-18); BUN/CREATININE RATIO 25.9 (5.4-32.0); CALCIUM 7.3 MG/DL (8.5-10.1); CHLORIDE 108 MMOL/L (99-107); CREATININE 0.85 MG/DL (0.60-1.10); GLUCOSE 102 MG/DL (70-104); MAGNESIUM 2.4 MG/DL (1.5-2.4); POTASSIUM 4.7 MMOL/L (3.5-5.1); SODIUM 141 MMOL/L (135-145); TOTAL CARBON DIOXIDE 26.5 MMOL/L (24-32); eGFR 89 ML/MIN
[2021-11-18] MEDS: tamsulosin 0.4mg capsule PO SCH (07:51)
[2021-11-18] MEDS: metoprolol tartrate 12.5mg (1/2 tablet) PO SCH (07:51)
[2021-11-18] MEDS: aspirin 325mg tablet, delayed-release (Ecotrin) PO SCH (07:51)
[2021-11-18] MEDS: guaiFENesin ER 600mg tablet PO SCH (07:51)
[2021-11-18] MEDS: magnesium Cl slow-release 64mg tablet PO SCH (07:51)
[2021-11-18] MEDS: pantoprazole 40mg Tablet.DR PO SCH (07:52)
[2021-11-18] MEDS: potassium Cl 20 mEq SR tablet PO SCH (07:52)
[2021-11-18] MEDS: HYDROcodone/acetaminophen 10/325mg tab PO PRN (07:52)
[2021-11-18] MEDS: ascorbic acid 500mg tablet PO SCH ×2 (07:52→08:30)
[2021-11-18] MEDS: sennosides/docusate sodium tablet PO SCH (08:00)
[2021-11-18 11:00] VITALS: BP 110/70
--- NOTE | 2021-11-18 12:48 | NUR ---
Discharge instructions discussed with patient and son. All questions answered. Pt states he understands all instructions. Pt left unit ambulating with son.
== END 2021-11-18 12:46 | disposition home or self-care (01) | DRG 219 ==
LOC: PAS IN 05:25 → ICU 2S 11:40 → PCU 3S 11-17 07:45
PROVIDERS: ADMIT Thoracic Surgery (Cardiothoracic Vascular Surgery); ATTEND Thoracic Surgery (Cardiothoracic Vascular Surgery)
PROC: 02BG0ZZ Excision of Mitral Valve, Open Approach (ICD-10-PCS; 2021-11-14)
PROC: 02L70CK Occlusion of Left Atrial Appendage with Extraluminal Device, Open Approach (ICD-10-PCS; 2021-11-14)
PROC: 5A1221Z Performance of Cardiac Output, Continuous (ICD-10-PCS; 2021-11-14)
PROC: 02UG08Z Supplement Mitral Valve with Zooplastic Tissue, Open Approach (ICD-10-PCS; principal; 2021-11-14 07:06)
PROC: 3E02340 Introduction of Influenza Vaccine into Muscle, Percutaneous Approach (ICD-10-PCS; 2021-11-17)
PROC: 3E0234Z Introduction of Serum, Toxoid and Vaccine into Muscle, Percutaneous Approach (ICD-10-PCS; 2021-11-17)
DX: I34.0 Nonrheumatic mitral (valve) insufficiency (principal); I51.1 Rupture of chordae tendineae, not elsewhere classified; E78.5 Hyperlipidemia, unspecified; I27.20 Pulmonary hypertension, unspecified; I10 Essential (primary) hypertension; D69.6 Thrombocytopenia, unspecified; B19.20 Unspecified viral hepatitis C without hepatic coma; K21.9 Gastro-esophageal reflux disease without esophagitis; G47.33 Obstructive sleep apnea (adult) (pediatric); G43.909 Migraine, unspecified, not intractable, without status migrainosus; Z23 Encounter for immunization; Z95.5 Presence of coronary angioplasty implant and graft; R00.1 Bradycardia, unspecified
CPT/HCPCS: 36415; 36600; 71045; 71046; 80048; 80053; 81003; 82330; 82435; 82803; 82947; 82948; 83036; 83735; 84100; 84132; 84295; 85008; 85018; 85025; 85347; 85384; 85610; 85730; 86885; 86900; 86901; 86920; 87081; 87088; 87635; 88305; 90732; 93005; 93308; 93312; 93325; 94002; 94010; 94668; 94760; 97116; 97161; 97530; A4618; A6258; A6449; A7000; A7048; C1751; C9113; G0378; J0131; J0171; J0690; J1815; J1940; J2060; J2250; J2370; J2704; J3370; J3480; J3490; J7030; J7040; J7050; J7060; J7120; P9045